=== PATIENT | male | born 2000 | race Caucasian/White ===

== ENCOUNTER 2019-07-22 18:38 | Emergency (ER) | payer BC, OTHER ==
--- NOTE | 2019-07-22 19:27 | UC ---
Throat Pain/Nasal Daniel HPI - HPI Summary HPI Summary: 19-year-old male who started having some mild flulike symptoms approximately 6 days ago. He feels better today however continues with a sore throat. He is a smoker. He states that his employer needs a note stating the patient is not presently contagious. He has not been in contact with anyone with Covid 19 nor anyone who is being tested for COVID-19 - History of Current Complaint Chief Complaint: UCRespiratory Stated Complaint: COUGH SORE THROAT ACHY Time Seen by Provider: 07/22/19 18:45 Hx Obtained From: Patient Onset/Duration: Gradual Onset, Lasting Days Severity: Mild Cough: None Associated Signs & Symptoms: Positive: Negative Related History: Smoking - Allergies/Home Medications Allergies/Adverse Reactions: Allergies Allergy/AdvReac Type Severity Reaction Status Date / Time No Known Allergies Allergy Verified 07/22/19 18:55 Home Medications: Home Medications Amoxicillin PO (*) [Amoxicillin 875 MG (*)] 875 mg PO BID 10 Days #20 tab [Rx] PMH/Surg Hx/FS Hx/Imm Hx Previously Healthy: Yes - Surgical History Surgical History: Yes Surgery Procedure, Year, and Place: surgery to remove skin abscess - Family History Known Family History: Positive: Unknown - Social History Alcohol Use: None Substance Use Type: None Smoking Status (MU): Light Every Day Tobacco Smoker Type: Cigarettes Amount Used/How Often: 4 cigs a day Household Exposure Type: Cigarettes Review of Systems All Other Systems Reviewed And Are Negative: Yes Constitutional: Positive: Fever - Patient had a fever in the beginning of the illness that has resolved. ENT: Positive: Sore Throat - Sore throat continues since the weekend. Is Patient Immunocompromised?: No Physical Exam Triage Information Reviewed: Yes Appearance: Well-Appearing, No Pain Distress, Well-Nourished Vital Signs Reviewed: Yes Eyes: Positive: Conjunctiva Clear ENT: Positive: Pharyngeal erythema, TMs normal, Tonsillar swelling, Uvula midline. Negative: Tonsillar exudate, Trismus, Muffled voice, Hoarse voice Neck: Positive: Supple, Nontender, No Lymphadenopathy Respiratory: Positive: Lungs clear, Normal breath sounds, No respiratory distress, No accessory muscle use Cardiovascular: Positive: RRR, No Murmur, Pulses Normal, Brisk Capillary Refill Abdomen Description: Positive: Nontender, No Organomegaly, Soft. Negative: CVA Tenderness (R), CVA Tenderness (L), Distended, Guarding, Hepatomegaly, Splenomegaly Bowel Sounds: Positive: Present Musculoskeletal Exam: Normal Neurological Exam: Normal Psychological Exam: Normal Skin Exam: Normal Throat Pain/Nasal Course/Dx - Course Course Of Treatment: Covid-19 test was obtained. Rapid strep test: Positive The patient was advised that he cannot return to work until the Covid 19 test results are back. He was agreeable to home quarantine until test results are given. - Differential Dx/Diagnosis Provider Diagnosis: Strep pharyngitis, Educated about COVID-19 virus infection Discharge ED - Sign-Out/Discharge Documenting (check all that apply): Patient Departure All imaging exams completed and their final reports reviewed: No Studies - Discharge Plan Condition: Good Disposition: HOME Prescriptions: Amoxicillin PO (*) [Amoxicillin 875 MG (*)] 875 mg PO BID 10 Days #20 tab Patient Education Materials: Strep Throat (DC) Forms: COVID-19 Tested & Isolation Referrals: [facility] [Outside] No Primary Care Phys,NOPCP [Primary Care Provider] - Additional Instructions: Increase fluids, change toothbrush in 24 hours, warm salt water gargles, throat lozenges. May take Tylenol every 4 hours with Motrin every 8 hours for pain. We will call you with the COVID-19 test results in 3-4 days. Follow-up with your primary care provider in 4-5 days if no improvement. - Billing Disposition and Condition Condition: GOOD Disposition: Home - Attestation Statements Provider Attestation: This patient was not seen by me. I was available for consult. Chart reviewed. MARTHA
[2019-07-22 19:42] VITALS: BP 121/72
--- NOTE | 2019-07-26 09:35 | UC ---
- Progress Note Progress Note: Covid results from July 23, 2019 come back as undetected. Patient call patient inform the patient of the results. Course/Dx - Diagnoses Provider Diagnoses: Strep pharyngitis, Educated about COVID-19 virus infection Discharge ED - Sign-Out/Discharge Documenting (check all that apply): Patient Departure All imaging exams completed and their final reports reviewed: No Studies - Discharge Plan Condition: Good Disposition: HOME Prescriptions: Amoxicillin PO (*) [Amoxicillin 875 MG (*)] 875 mg PO BID 10 Days #20 tab Patient Education Materials: Strep Throat (DC) Forms: COVID-19 Tested & Isolation Referrals: [facility] [Outside] No Primary Care Phys,NOPCP [Primary Care Provider] - Additional Instructions: Increase fluids, change toothbrush in 24 hours, warm salt water gargles, throat lozenges. May take Tylenol every 4 hours with Motrin every 8 hours for pain. We will call you with the COVID-19 test results in 3-4 days. Follow-up with your primary care provider in 4-5 days if no improvement. - Billing Disposition and Condition Condition: GOOD Disposition: Home
== END 2019-07-22 19:44 | disposition home or self-care (01) ==
LOC: UCCORT 18:38
DX: J02.0 Streptococcal pharyngitis (principal); Z20.828 Contact with and (suspected) exposure to other viral communicable diseases; F17.210 Nicotine dependence, cigarettes, uncomplicated
CPT/HCPCS: 87635; 87651; 99202; G0463; G2023

== ENCOUNTER 2019-08-09 17:50 | Emergency (ER) | payer SELFPAY ==
--- NOTE | 2019-08-09 17:52 | UC ---
Throat Pain/Nasal Daniel HPI - HPI Summary HPI Summary: 19 y/o male presents to the urgent care c/o Sore throat since yesterday. Mild Productive cough on and off for the past 2 days days. Pt reports he was seen here at the clinic on 07/22/2019 and was positive for strep and negative COVID test. He was Rx Amoxicillin and finished full treatment. However yesterday symptoms returned. Pain w/ swallowing is 6/10. Pt denies fever, SOB, chest pain, AVALOS, dizziness, abdominal pain, urinary symptoms, N/V/D. - History of Current Complaint Stated Complaint: ST Time Seen by Provider: 08/09/19 17:51 Hx Obtained From: Patient Onset/Duration: Gradual Onset, Lasting Days - 1 day, Still Present Severity: Moderate Pain Intensity: 6 Pain Scale Used: 0-10 Numeric Cough: Nonproductive - mild probably due to PND Associated Signs & Symptoms: Positive: Sinus Discomfort, Nasal Discharge - mild clear, Other - PND. Negative: Dysphagia, Wheezing, Fever - Epiglottits Risk Factors Epiglottis Risk Factors: Negative - Allergies/Home Medications Allergies/Adverse Reactions: Allergies Allergy/AdvReac Type Severity Reaction Status Date / Time No Known Allergies Allergy Verified 08/09/19 17:55 Home Medications: Home Medications Ibuprofen TAB* [Motrin TAB* 600 MG] 600 mg PO Q8H PRN #30 tab 08/09/19 [Rx] PMH/Surg Hx/FS Hx/Imm Hx Previously Healthy: Yes - Pt denies PMHX - Surgical History Surgical History: Yes Surgery Procedure, Year, and Place: surgery to remove skin abscess - Family History Known Family History: Positive: None - Pt denies FMHX - Social History Occupation: Student Lives: With Family Alcohol Use: None Substance Use Type: None Smoking Status (MU): Light Every Day Tobacco Smoker Type: Cigarettes Amount Used/How Often: 4 cigs a day Household Exposure Type: Cigarettes - Immunization History Vaccination Up to Date: Yes Review of Systems All Other Systems Reviewed And Are Negative: Yes Constitutional: Positive: Negative Skin: Positive: Negative Eyes: Positive: Negative ENT: Positive: Sore Throat, Nasal Discharge - mild clear, Sinus Congestion - mild, Other - clear PND Respiratory: Positive: Cough - mild Cardiovascular: Positive: Negative Gastrointestinal: Positive: Negative Genitourinary: Positive: Negative Motor: Positive: Negative Neurovascular: Positive: Negative Musculoskeletal: Positive: Negative Neurological/Mental Status: Positive: Negative Psychological: Positive: Negative Is Patient Immunocompromised?: No Physical Exam - Summary Physical Exam Summary: VITAL SIGNS: Reviewed. GENERAL: Patient is a well developed and nourished male who is sitting comfortably in the examining table. Patient is not in any acute respiratory distress. HEAD AND FACE: No signs of trauma. No ecchymosis, hematomas or skull depressions. No sinus tenderness. EYES: PERRLA, EOMI x 2, No injected conjunctiva, no nystagmus. No photophobia. EARS: Hearing grossly intact. Ear canals and tympanic membranes are within normal limits. MOUTH: Positive pharynx with erythema, exudates, palatal petechiae. B/L tonsillar enlargement with no exudate. Uvula in midline. NECK: Supple, trachea is midline, Positive anterior cervical lymphadenopathy, no JVD, no carotid bruit, no c-spine tenderness, neck with full ROM. No meningeal signs, no Kernig's or brudzinskis signs. CHEST: Symmetric, no tenderness at palpation LUNGS: Clear to auscultation bilaterally. No wheezing or crackles. CVS: Regular rate and rhythm, S1 and S2 present, no murmurs or gallops appreciated. ABDOMEN: Soft, non-tender. No signs of distention. No rebound no guarding, and no masses palpated. Bowel sounds are normal. EXTREMITIES: FROM in all major joints, no edema, no cyanosis or clubbing. NEURO: Alert and oriented x 3. No acute neurological deficits. Speech is normal and follows commands. SKIN: Dry and warm Triage Information Reviewed: Yes Throat Pain/Nasal Course/Dx - Course Course Of Treatment: 19 y/o male presents to the urgent care c/o Sore throat since yesterday. Mild Productive cough on and off for the past 2 days days. Pt reports he was seen here at the clinic on 07/22/2019 and was positive for strep and negative COVID test. He was Rx Amoxicillin and finished full treatment. However yesterday symptoms returned. Pain w/ swallowing is 6/10. Pt denies fever, SOB, chest pain, AVALOS, dizziness, abdominal pain, urinary symptoms, N/V/D. Hx obtained. Pt is hemodynamically stable, A&OX3, w/ tonsillitis on examination. Rapid strep: negative. Throat culture and Monospot ordered and sent to lab. Pt will be notified of any abnormality for further management. Pt given Ibuprofen PO by the nurse for pain. Pt tolerated well medication and pain decrease. Pt Rx Ibuprofen PO as directed below for swelling and pain. If not improvement of symptoms advised to f/u w/ PCP of return to the clinic for further management. f D/C instructions explained. Pt understood and agreed w/ plan of care. - Differential Dx/Diagnosis Differential Diagnosis/HQI/PQRI: Influenza, Laryngitis, Mononucleosis, Pharyngitis, Sinusitis, Tonsillitis, URI Provider Diagnosis: Acute tonsillitis Discharge ED - Sign-Out/Discharge Documenting (check all that apply): Patient Departure - D/C home All imaging exams completed and their final reports reviewed: No Studies - Discharge Plan Condition: Good Disposition: HOME Prescriptions: Ibuprofen TAB* [Motrin TAB* 600 MG] 600 mg PO Q8H PRN #30 tab PRN Reason: moderate pain Patient Education Materials: Tonsillitis (ED) Referrals: [facility] [Outside] - 3 Days Additional Instructions: 1- Rapid strep: negative. Throat culture and Monospot test was sent to lab to r/ o any abnormality. You will be notified of any abnormality for further management 2-Please take ibuprofen PO q6-8hrs prn as instructed after meals to alleviate pain and swelling. Increase fluid intake, eat well, rest and avoid strenuous exercise. 3-If symptoms do not improve or worsen please return to the urgent care or f/u with your PCP for further evaluation and treatment. - Billing Disposition and Condition Condition: GOOD Disposition: Home
[2019-08-09 18:07] VITALS: BP 132/79
[2019-08-09] MEDS ORDERED: Ibuprofen TAB* 400 MG PO ONE (18:14)
[2019-08-11 12:16] LABS: EBV Capsid Ag IgG Ab Positive (Negative); EBV Capsid Ag IgM Ab Negative (Negative); Epstein-Barr Nuclear Antigen Positive (Negative)
== END 2019-08-09 18:32 | disposition home or self-care (01) ==
LOC: UCCORT 17:50
DX: J03.90 Acute tonsillitis, unspecified (principal); F17.210 Nicotine dependence, cigarettes, uncomplicated
CPT/HCPCS: 36415; 86308; 86664; 86665; 87070; 87651; 99212; A9270-GY; G0463